=== PATIENT | female | born 1995 | race Caucasian/White ===

== ENCOUNTER → 2017-02-07 | Outpatient (CLI) | payer OTHER ==
[~2017-02-07] MED LIST: AMPH10TA2 PO; BCPILLS PO; CLR10 PO; SERT-234 PO
== END | disposition home or self-care (01) ==
LOC: C.PATHSPEC 15:13
PROVIDERS: ATTEND Obstetrics & Gynecology
DX: R87.612 Low grade squamous intraepithelial lesion on cytologic smear of cervix (LGSIL) (principal)